=== PATIENT | male | born 1950 | race Caucasian/White ===

== ENCOUNTER → 2016-07-18 | Outpatient (CLI) | payer OTHER ==
--- NOTE | 2016-07-18 18:16 | CT ---
"High-Resolution Chest CT, Without Contrast, dated July 18, 2016 Indication: Dyspnea. Abnormal chest x-ray. Technique: Axial high-resolution computed tomographic images obtained including inspiratory and expi ratory 1.25-mm slice thickness images at 10-mm intervals. Prone axial images through the lung bases with inspiratory phase at 1.25-mm thickness at 10-mm intervals. Axial 2.5-mm images through the enti re chest with inspiratory phase also obtained. No intravenous contrast utilized. Dose reduction kim hniques were utilized. Findings: Multifocal bilateral reticular abnormality involving the subpleural distribution and to a lesser degree peribronchial vascular pattern in the right lower lobe and left lower lobe. Scattered fissural nodules, multifocal ground-glass opacities, and traction bronchiectasis in the lower lobes, right middle lobe, and lingula. No caleb honeycombing. The apical segment of the left upper lobe is relatively well spared. No caleb honeycombing. No emphysema or mucous plugging. Two indeterminant noncalcified pulmonary nodules in the apical segment right upper lobe measure 6 x 5 mm on image #70 of series #6 and 7 x 5 mm on image #73 of series #6. No spiculated or ground-glass nodule. Trace left pleural effusion. No pericardial or right-sided effusion. Heart size normal. Calcified plaque is present along the left anterior descending coronary artery. The thoracic aorta is normal caliber. Shotty fatty hilar lymph nodes are scattered throughout the mediastinum and pulmonary nataly. No enlar ged lymph nodes throughout the axilla, mediastinum, or pulmonary nataly. The imaged portion of the enmanuel er and spleen are unremarkable and normal size. No adrenal gland nodules. Multilevel mild degenerative disk disease. No acute compression fracture or bone lesion. Impression: 1. Mild to moderate pulmonary fibrosis. The pattern has mixed features of nonspecific interstitial pneumonitis (NSIP) and atypical usual interstitial pneumonitis (UIP). The pattern is doubtful for ch ronic hypersensitivity pneumonitis or sarcoidosis. 2. Two probably benign nodules apical segment right upper lobe. Recommend follow-up noncontrast [facility] st CT in six months. A Follow-Up Required test result has been communicated via the Graph Story | Critical Result syst em on 07/18/2016 18:01, Message ID [id number]."
== END ==
LOC: FIMAGING 14:20
PROVIDERS: ATTEND Internal Medicine Pulmonary Disease
DX: J84.10 Pulmonary fibrosis, unspecified (principal); R91.8 Other nonspecific abnormal finding of lung field

== ENCOUNTER 2017-08-05 13:40 | Inpatient (IN) | payer OTHER ==
[2017-08-05] MEDS ORDERED: NS 500 ML IV ONE (13:56)
[2017-08-05] MEDS ORDERED: IPRATROPIUM/ALBUTEROL 3 ML DEYVIAL IH ONE (13:56)
--- NOTE | 2017-08-05 14:04 | EDPHY ---
H & P Smoking Status: Never smoked Time Seen by Provider: 08/05/17 13:45 HPI/ROS: HPI Shortness of breath, low oxygen levels. 66-year-old male by private vehicle. This patient has a history of pulmonary fibrosis which was diagnosed 1 year ago. He has been managed by Dr. Jd Padron of the pulmonology service. He currently is not on any medications. He reports that he was in the company of his grandson over the weekend who had an upper respiratory infection with cough congestion and sneezing. Saturday he started to sneezed and developed an intermittent cough and nasal congestion with production of clear rhinorrhea. He feels that this is exacerbated his pulmonary fibrosis. He presents to the emergency department today stating that he has been feeling more short of breath continues to have nasal congestion and he purchased a home use pulse oximetry reader today. He reports that on room air he was in the low to mid 70s. He does not use oxygen at home. ROS: Constitutional: No fever, no chills. No weakness. Eyes: No discharge. No changes in vision. ENT: No sore throat. As above. Respiratory: As above. Cardiac: No chest pain, no palpitations. Gastrointestinal: No abdominal pain, no vomiting, no diarrhea. Genitourinary: No hematuria. No dysuria or increased frequency with urination. Musculoskeletal: No back pain. No neck pain. No myalgias or arthralgias. Skin: No rashes. Neurological: No headache. No focal weakness or altered sensation. Past medical history: Pulmonary fibrosis. As above. Social history: Former smoker. Has not smoked in years. Does not drink alcohol. Lives with his and family. Physical Exam: General Appearance: Alert, pleasant elderly male, no distress. This patient is responding to questions appropriately and in full sentences. Intermittent dry cough. This patient appears well-hydrated and well-nourished. Eyes: Pupils equal and round no pallor or injection. No lid edema, erythema or injection. Respiratory: There are no retractions, shallow air movement throughout all lung booker with crackles at the bases and scant rhonchi mid lung booker. Mild tachypnea. Cardiovascular: Regular rate and rhythm. Borderline tachycardia. No murmur appreciated. Gastrointestinal: Abdomen is soft and nontender, no masses, bowel sounds normal. No focal tenderness at McBurney's point. No Mendoza sign. Neurological: Motor sensory function is grossly intact. Cranial nerves are normal. Gait is normal. Skin: Warm and dry, no rashes. Musculoskeletal: Neck is supple and nontender. Extremities are symmetrical. No significant lower extremity edema. All joints range without pain or impingement. Psychiatric: No agitation. No depression. Database: Imaging: Chest x-ray PA and lateral; the cardiac mediastinal silhouette is unremarkable. Significant for interstitial lung disease process which appears to be worse when compared to prior chest x-ray from May of 2016. Suspect possible new infiltrative process left lower lobe and right middle lung field. Interpreted by me. Procedures: Emergency department course: Vital signs reviewed. He is not febrile. Room air pulse oximetry in the upper 70s to low 80s on arrival. EKG obtained and reviewed by myself. He will be given a trial albuterol/Atrovent nebulizer treatment. 2:45 p.m. patient re-evaluated. He does not feel any significant change from nebulizer treatment. After review of the patient's chest x-ray, blood cultures were obtained. The patient will be started on broad-spectrum antibiotics IV Rocephin and azithromycin. EKG is currently pending. This will be done shortly. I have discussed case in detail with my colleague Dr. Loy Mojica who is taking over as emergency department attending. He will follow up on remaining test results, consult with hospitalist and get this patient admitted and transferred to our hospitalist service. Differential Diagnosis: The differential diagnosis on this patient includes but is not limited to bronchitis, upper respiratory infection, history of pulmonary fibrosis, pulmonary embolism, acute coronary syndrome, pneumonia, congestive heart failure. This represents a partial list of diagnoses considered. These considerations are based on history, physical exam, past history, reassessment and diagnostic testing. (Kelley Hand) Past Medical/Surgical History: Family history is negative for premature coronary disease or any immediate family members with DC. (Loy Mojica) Social History: Smokes marijuana occasionally. Never smoked tobacco. (Loy Mojica) Constitutional: Initial Vital Signs Temperature (C) 36.9 C 08/05/17 13:49 Heart Rate 113 H 08/05/17 13:49 Respiratory Rate 20 08/05/17 13:49 Blood Pressure 131/90 H 08/05/17 13:49 O2 Sat (%) 81 L 08/05/17 13:49 O2 Delivery Mode Nasal Cannula O2 (L/minute) 3 Allergies/Adverse Reactions: No Known Allergies Allergy (Verified 08/05/17 19:17) Home Medications: Medication Instructions Recorded Ibuprofen [Motrin (*)] 200 - 600 mg PO Q6H PRN 08/05/17 Multivitamins [Multivitamin (*)] 1 each PO DAILY 08/05/17 Boyd-3 Fatty Acids [Fish Oil 1000 2,000 mg PO DAILY 08/05/17 mg (*)] Pseudoephedrine HCl [Sudafed 12 120 mg PO BID PRN 08/05/17 Hour 120mg (*)] Aspirin EC [Aspirin EC 81 mg (*)] 81 mg PO DAILY tab 08/07/17 Azithromycin [Zithromax] 500 mg PO DAILY #3 tab 08/07/17 Metoprolol Tartrate [Lopressor 25 12.5 mg PO BID #60 tab 08/07/17 mg (*)] Medical Decision Making - Diagnostics EKG Interpretation: 12 lead EKG was performed at 3:12 p.m. Indication dyspnea Sinus tachycardia 103 Intervals: P R of 184, QRS of 104, QTC of 466 Polk: P of 12, QRS of -80, T of 13 ST segments are notable for ST depression in leads V2 and V3 J-point elevation in V4 V5 1 mm and Q-waves in V3 through V5. Overall assessment sinus rhythm with left anterior fascicular block evidence of anterior infarct-age indeterminate. No prior EKGs for comparison. Repeat EKG performed at 5:25 p.m.-rule out interval change Sinus rhythm at 96 Intervals: No significant change from initial EKG Polk: P of 33, QRS of -85, T of -17 ST segments: Persistent T-wave inversions and entero lateral leads with no significant interval change by my interpretation. Overall assessment: Sinus rhythm with left anterior fascicular block and evidence of age indeterminate anterior infarct (Loy Mojica) ED Course/Re-evaluation: At 3:20 p.m. Given EKG findings, the patient is treated with aspirin 324. I interviewed him in some detail regarding any cardiac symptoms after reviewing his EKG and he denies having any chest pain, heart palpitations, diaphoresis, nausea, lower extremity swelling or other symptoms that sound like cardiac ischemia. He only noticed the frequent coughing and feeling of chest congestion and dyspnea. I placed a page to our hospitalist at 3:30 a.m. As well as our director of community center with plan for admission and cardiology consult I spoke with Shwetha White, hospitalist accepts patient for admission to [facility] for further treatment and evaluation I spoke with Kerwin, nurse practitioner with [facility] in consult. They will see the patient when he arrives at [facility] - likely echocardiogram and further evaluation. Initial treatment was oriented toward pneumonia with cough, given exposure to respiratory illness and concern for infiltrate on the x-ray. In addition, his BNP came back elevated over 2800. He has no leukocytosis or fever. Venous lactate is also normal. When queried, the patient admits orthopnea over the past 2 days in association with the symptoms. On repeat examination, rales at bilateral bases are also present & these findings suggest pulmonary edema in addition to potential pneumonia. With evidence of subacute infarct and EKG likely related to ischemia, this patient may have had lower cardiac output resulting in pulmonary edema. Will treat him with 20 of Lasix IV as a I think that he is euvolemic to hypervolemic and has pulmonary edema contributing to his current hypoxia. I counseled patient regarding this. Will monitor I's/O's. Possibilities for this patient's pathogenesis includes potential silent DC with subsequent CHF versus primary pulmonary element such as worsening pulmonary fibrosis or viral pneumonitis/pneumonia with subsequent hypoxia and myocardial ischemia secondary to hypoxia (which seems more likely). At the moment he has no active cardiac symptoms other than the dyspnea that resolved with nasal cannula O2. While he was initially hypertensive on arrival while hypoxic with correction of hypoxia on nasal cannula O2 his BP is normalized to 120s over 70s. On supplemental O2 his current heart rate is 100. I answered the patient and his 's questions prior to transfer to [facility]. At the time of transfer he is stable on supplemental nasal cannula O2 and is diuresing after Lasix IV 1720: There is a delay in transfer. I ordered a repeat EKG to rule out any significant interval change from his initial EKG - on this EKG performed at 5:25 p.m. With a sinus rhythm at 96 I do not appreciate any significant interval change from the initial EKG. Please refer to above reading for more details and for trace master for complete read. I also spoke with Dr. Rigoberto Juan, director of community center from [facility] in consult. He agrees with current treatment plan of holding on any beta-gavi or blood thinners with plan to cycle enzymes overnight and perform an echocardiogram. This will be a transthoracic so tolerate for this patient to proceed with p.o. Intake. I answered all the patient's questions and his 's questions prior to transfer to [facility] by EMS. He is comfortable and stable at the time of transfer. (Loy Mojica) - Data Points Laboratory Results: Laboratory Results 08/05/17 14:10 08/05/17 14:10 Medications Given: Discontinued Medications Albuterol/Ipratropium (Duoneb) 3 ml IH EDNOW ONE Stop: 08/05/17 13:57 Last Admin: 08/05/17 14:19 Dose: 3 ml Albuterol/Ipratropium (Duoneb) 3 ml IH Q6 DARIO Stop: 02/02/18 00:00 Last Admin: 08/07/17 13:13 Dose: 3 ml Aspirin (Aspirin) 324 mg PO EDNOW ONE Stop: 08/05/17 15:24 Last Admin: 08/05/17 15:36 Dose: 324 mg Aspirin Buffered (Aspirin Ec) 81 mg PO DAILY DARIO Stop: 02/02/18 08:59 Last Admin: 08/07/17 09:30 Dose: 81 mg Enoxaparin Sodium (Lovenox) 40 mg SC DAILY DARIO Stop: 02/02/18 08:59 Last Admin: 08/07/17 09:30 Dose: 40 mg Furosemide (Lasix Injection) 20 mg IVP EDNOW ONE Stop: 08/05/17 16:03 Last Admin: 08/05/17 16:07 Dose: 20 mg Sodium Chloride (Ns) 500 mls @ 1,000 mls/hr IV EDNOW ONE PRN Reason: Protocol Stop: 08/05/17 14:25 Last Admin: 08/05/17 14:19 Dose: 500 mls Azithromycin 500 mg/ Sodium (Chloride) 255 mls @ 255 mls/hr IV EDNOW ONE PRN Reason: Protocol Stop: 08/05/17 15:57 Last Admin: 08/05/17 15:38 Dose: 255 mls Ceftriaxone Sodium/Dextrose (Rocephin 1 Gm (Premix)) 50 mls @ 100 mls/hr IV EDNOW ONE PRN Reason: Protocol Stop: 08/05/17 15:27 Last Admin: 08/05/17 15:37 Dose: 50 mls Ceftriaxone Sodium/Dextrose (Rocephin 1 Gm (Premix)) 50 mls @ 750 mls/hr IV DAILY DARIO PRN Reason: Protocol Stop: 09/05/17 08:59 Last Admin: 08/07/17 09:30 Dose: 50 mls Azithromycin 500 mg/ Sodium (Chloride) 255 mls @ 255 mls/hr IV DAILY DARIO PRN Reason: Protocol Stop: 09/05/17 08:59 Last Admin: 08/07/17 09:30 Dose: 255 mls Prednisone (Prednisone) 40 mg PO DAILY DARIO Stop: 02/02/18 10:29 Last Admin: 08/07/17 09:30 Dose: 40 mg Departure - Departure Disposition: [facility] Inpatient Acute Clinical Impression: Hypoxia, Pulmonary fibrosis, Pneumonia, Elevated troponin CHF (congestive heart failure) Qualifiers: Heart failure type: unspecified Heart failure chronicity: acute Qualified Code( s): I50.9 - Heart failure, unspecified Condition: Fair
[2017-08-05 14:19] LABS: PLATELET COUNT 213 10^3/uL (150-400)
[2017-08-05 14:29] LABS: INR 1.23 (0.83-1.16); PROTIME(PATIENT) 15.3 SEC (12.0-15.0)
[2017-08-05] MEDS ORDERED: AZITHROMYCIN IV 500 MG in NS 250 ML IV ONE (14:58)
--- NOTE | 2017-08-05 15:14 | CPEKG ---
Heart Rate: 103 RR Interval: 583 P-R Interval: 184 QRSD Interval: 104 QT Interval: 356 QTC Interval: 466 P Wilson: 12 QRS Wilson: -80 T Wave Wilson: 13 EKG Severity - ABNORMAL ECG - EKG Impression: SINUS TACHYCARDIA EKG Impression: PROBABLE LEFT ATRIAL ABNORMALITY EKG Impression: LEFT ANTERIOR FASCICULAR BLOCK EKG Impression: ANTERIOR INFARCT, AGE INDETERMINATE Electronically Signed By: Loy Mojica 05-Aug-2017 16:06:34
[2017-08-05] MEDS ORDERED: ASPIRIN 81 MG CHEWABLE TAB PO ONE (15:23)
[2017-08-05] MEDS ORDERED: ASPIRIN 81 MG CHEWABLE TAB ONE (15:28)
[2017-08-05] MEDS ORDERED: FUROSEMIDE 20 MG/2 ML VIAL IVP ONE (16:02)
--- NOTE | 2017-08-05 17:26 | CPEKG ---
Heart Rate: 96 RR Interval: 625 P-R Interval: 172 QRSD Interval: 100 QT Interval: 360 QTC Interval: 455 P Modesto: 33 QRS [place]: -85 T Wave [place]: -17 EKG Severity - ABNORMAL ECG - EKG Impression: SINUS RHYTHM EKG Impression: LEFT ANTERIOR FASCICULAR BLOCK EKG Impression: BORDERLINE R WAVE PROGRESSION, ANTERIOR LEADS EKG Impression: NONSPECIFIC T ABNORMALITIES, DIFFUSE LEADS Electronically Signed By: Loy Mojica 05-Aug-2017 17:31:28
[2017-08-05] MEDS ORDERED: ONDANSETRON 4 MG/2 ML VIAL IVP PRN (20:50)
[2017-08-05] MEDS ORDERED: ACETAMINOPHEN 325 MG TAB PO PRN (20:50)
[2017-08-05] MEDS ORDERED: IBUPROFEN 200 MG TAB PO PRN (20:52)
--- NOTE | 2017-08-05 21:21 | GHP ---
[f rep st] HISTORY AND PHYSICAL DATE OF ADMISSION: 08/05/2017 CHIEF COMPLAINT: Shortness of breath. HISTORY OF PRESENT ILLNESS: The patient is a 66-year-old male diagnosed with pulmonary fibrosis 1 ye ar ago. His baseline room air oxygen saturations are 88-90, and he does not wear home oxygen. His buck rodriguez recently had an upper respiratory tract infection. The patient started sneezing Saturday aft er lunch. He had progressive shortness of breath over the next 2 days. He felt severe shortness of breath this morning, so he went to [employer] and bought a pulse oximeter, measured himself to be 73% o n room air, so he came to the emergency room. There has been no chest pain. There is some possible orthopnea for the last 2 days. His cough is productive of mucus. PAST MEDICAL HISTORY: Pulmonary fibrosis. MEDICATIONS: Please see computer record for full detailed list. ALLERGIES: No known drug allergies. SOCIAL HISTORY: Former smoker. No alcohol. Lives with his . REVIEW OF SYSTEMS: Complete review of systems obtained. Review of systems negative on constitutiona l, HEENT, GI, pulmonary, vascular, , hematology, skin, musculoskeletal, endocrine, psych except for positives and negative as in HPI. FAMILY HISTORY: Reviewed, is negative for coronary artery disease. PHYSICAL EXAMINATION: GENERAL: Well-developed, well-nourished male, in no distress. VITAL SIGNS: Temperature 36.7, pulse 95, blood pressure 140/85, satting 96% on room air. EYES: Normal conjunctiv ae. Pupils equal, react to light. ENT: Normal ears and nose. Hearing intact. Normal teeth. Orop harynx moist. NECK: Trachea midline. No thyromegaly. CHEST: Normal effort. Lungs bibasilar rale s. CARDIOVASCULAR: Regular rate, rhythm. No murmur. No extremity edema. ABDOMEN: Soft, nontende r. No hepatosplenomegaly. SKIN: Warm, dry, intact without rash. MUSCULOSKELETAL: No cyanosis or clubbing. Strength 5/5 upper and lower extremities. NEURO: Cranial nerves intact. Normal sensatio n to light touch. PSYCH: Alert and oriented x3. Normal mood and affect. Normal judgment and insig ht. Normal memory. LABORATORY DATA: White count 7.5, hematocrit 53.6, platelets 213, sodium 139, potassium 4.9, chlorid e 99, bicarb 26, BUN 18, creatinine 1.0, glucose of 80. BNP is 2,850, troponin is 0.062. RSV is pos itive. EKG, viewed by me, my personal interpretation is sinus tachycardia. Significant inferior and anterio r T-wave inversions. Chest x-ray shows bilateral pulmonary fibrosis, possible superimposed basilar consolidation. ASSESSMENT/PLAN: 1. Respiratory syncytial virus infection. Suspect he may have a bacterial pneumonia secondarily. W e will continue ceftriaxone and azithromycin. We will check a procalcitonin. 2. Possible congestive heart failure. It is difficult to differentiate pulmonary fibrosis versus pu lmonary edema. His BNP is a little elevated. He did receive a dose of IV Lasix x1. We will check a n echocardiogram. 3. Electrocardiogram changes with borderline troponin elevation. This is probably due to the stress of his hypoxemia, but we will follow serial troponins and EKGs. The emergency room consulted Cardio logy to see in the morning. CODE STATUS: Full. ADMISSION STATUS: We will admit to inpatient, as we anticipate greater than 2 midnights required for stabilization. DVT PROPHYLAXIS: He is high risk. We will place on subcu Lovenox. /[id number]/MODL
[2017-08-05] MEDS: IPRATROPIUM/ALBUTEROL 3 ML DEYVIAL IH SCH (23:50)
[2017-08-06 04:26] LABS: PLATELET COUNT 185 10^3/uL (150-400)
[2017-08-06] MEDS: IPRATROPIUM/ALBUTEROL 3 ML DEYVIAL IH SCH ×4 (05:15→23:10)
[2017-08-06] MEDS ORDERED: ENOXAPARIN 40 MG/0.4 ML SYR SC SCH (09:00)
--- NOTE | 2017-08-06 09:11 | CPEKG ---
Heart Rate: 96 RR Interval: 625 P-R Interval: 164 QRSD Interval: 98 QT Interval: 344 QTC Interval: 435 P Mckenna: 48 QRS Mckenna: -83 T Wave Mckenna: -10 EKG Severity - ABNORMAL ECG - EKG Impression: SINUS RHYTHM EKG Impression: LEFT ANTERIOR FASCICULAR BLOCK EKG Impression: ANTERIOR INFARCT, AGE INDETERMINATE EKG Impression: BORDERLINE T ABNORMALITIES, INFERIOR LEADS EKG Impression: SIMILAR ECG TO PRIOR Electronically Signed By: Johan Martin 06-Aug-2017 11:32:44
[2017-08-06] MEDS: ASPIRIN EC 81 MG TAB PO SCH (09:26)
[2017-08-06] MEDS: AZITHROMYCIN IV 500 MG in NS 250 ML IV SCH (09:26)
[2017-08-06] MEDS: ENOXAPARIN 40 MG/0.4 ML SYR SC SCH (09:26)
--- NOTE | 2017-08-06 10:04 | ASMTCMCOM ---
CM Note CM Note Notes: Patient admitted for a URI and possible PNA. He is being treated with IV antibiotics. There is also a suspicion of CHF; an EKG has been ordered. Patient lives independently with his . No acute therapies have been ordered. I don't anticipate any discharge needs, but if they arise Case Management is available. Date Signed: 08/06/2017 10:04 AM Electronically Signed By:Letha Manzanares RN
--- NOTE | 2017-08-06 10:21 | ECHO ---
[email or web address] [address] [address] Main: [phone] Fax: Transthoracic Echocardiogram Name: BLAINE GARVIN MR#: [id number] Study Date: 08/06/2017 Study Time: 08:31 AM Date of : 1950 Age: 66 year(s) Height: 177.8 cm (70 in.) Weight: 88 kg (194 lb.) BSA: 2.06 m2 Gender: Male Examination: Echo Indication: Pulmonary fibrosis/elevated troponin Image Quality: Contrast: Requested by: Shwetha White BP: 113 mmHg/64 mmHg Heart Rate: Rhythm: Indication: Pulmonary fibrosis/elevated troponin Procedure Staff Comedian: Tali Reeves RDCS Reading Physician: Magdi Connell MD Requesting Provider: Conclusions: Normal size left ventricle. Mild concentric LV hypertrophy. Global hypercontractility of the left ventricle. EF is 64 %. Moderately dilated right ventricle. Moderately to severely reduced right ventricular function. Flattened interventricular septum consistent with right ventricular pressure and/or volume overload septum. RVSP is 53mmHG.. The right atrium is mildly to moderately dilated. The mitral valve is normal in appearance and function. Trivial mitral valve regurgitation. The aortic valve is tri-leaflet. Mild aortic cusp calcification is noted. The tricuspid valve is normal in appearance and function. Mild tricuspid regurgitation is present. The pulmonary artery pressure is mildly increased. Measurements: Chambers Valvular Assessment AV/MV Valvular Assessment TV/PV Normal Normal Normal Name Value Range Name Value Range Name Value Range Ao Maida (MM): 4.1 cm (2.2 cm-3.7 AV meanP mmHg ( - ) TR Vmax: 3.28 mm/s ( - ) cm) MV E Vmax: 0.62 m/s ( - ) TR PGmax: 43 mmHg ( - ) IVSd (2D): 1.1 cm (0.6 cm-1.1 MV A Vmax: 0.75 m/s ( - ) syst. PAP: 53 mmHg ( - ) cm) MV E/A: 0.83 ( - ) LVDd (2D): 4.7 cm (4.2 cm-5.9 cm) LVDs (2D): 3.2 cm (2.1 cm-4 cm) Patient: BLAINE GARVIN Study Date: 08/06/2017 Page 1 of 2 08:31 AM LVPWd (2D): 1.1 cm (0.6 cm-1 cm) LVEF (MOD4): 64 % (>=55 %) Continued Measurements: Chambers Valvular Assessment AV/MV Valvular Assessment TV/PV Name Value Name Value Name Value LADs: 4.8 cm MV E/E' Septal: 7.80 CVP (est.): 10 mmHg MV E/E' Lateral: 6.90 Additional Vessels Name Value Ao Ascendin.1 cm Findings: Left Ventricle: Normal size left ventricle. Mild concentric LV hypertrophy. Global hypercontractility of the left ventricle. EF is 64 %. Right Ventricle: Moderately dilated right ventricle. Moderately to severely reduced right ventricular function. Flattened interventricular septum consistent with right ventricular pressure and/or volume overload septum. RVSP is 53mmHG.. Left Atrium: The left atrium is normal in size. Right Atrium: The right atrium is mildly to moderately dilated. Mitral Valve: The mitral valve is normal in appearance and function. Trivial mitral valve regurgitation. Aortic Valve: The aortic valve is tri-leaflet. Mild aortic cusp calcification is noted. Tricuspid Valve: The tricuspid valve is normal in appearance and function. Mild tricuspid regurgitation is present. The pulmonary artery pressure is mildly increased. Pulmonic Valve: The pulmonic valve is normal in appearance and function. Aorta: Borderline ascending aorta dilatation.. The aorta is normal. Pericardium: No pericardial effusion. (No Signature Object) Patient: BLAINE GARVIN Study Date: 08/06/2017 Page 2 of 2 08:31 AM [id number]
--- NOTE | 2017-08-06 10:31 | HOSPPROG ---
Hospitalist Progress Note Assessment/Plan: 66 yo M w pulm fibrosis here w rsv, AHRF AHRF: pulm fibrosis plus superimposed lung disease continue nebs, add pred 40 X 5 days rsv noted IS and pulm toilet ?bacterial pneumonia: at risk for secondary pneumonia continue abx procalcitonin noted, uncertain significance abnormal ekg and indet trop: suspect strain from lung disease and hypoxemia no prior cardiology consulted this is not ACS elevated bnp: suspect R heart strain from acute on chronic lung disease proph: LMWH dispo: inpt Subjective: tele: sinus and sinus tach (intero by me). ekg w LAFB and ant twi ( interp by me). cxr w worsening LL airspace disease on known ILD (interp by me) symptomatically improved from admission Objective: Vital Signs Temp Pulse Resp BP Pulse Ox 36.4 C 103 H 15 113/64 92 08/06/17 03:54 08/06/17 05:16 08/06/17 05:16 08/06/17 03:54 08/06/17 05:16 Laboratory Results 08/06/17 04:10 08/06/17 04:10 08/05/17 08/06/17 08/07/17 05:59 05:59 05:59 Intake Total 1200 Output Total 2000 Balance -800 PT 15.3 SEC (12.0-15.0) H 08/05/17 14:10 INR 1.23 (0.83-1.16) H 08/05/17 14:10 - Physical Exam Constitutional: no apparent distress, appears nourished Eyes: PERRL, anicteric sclera Ears, Nose, Mouth, Throat: moist mucous membranes, hearing normal Cardiovascular: regular rate and rhythym, no murmur, rub, or gallop, No edema Respiratory: other (b/l rhonchi w wheezes. good air movement) Gastrointestinal: normoactive bowel sounds, soft, non-tender abdomen Genitourinary: no bladder fullness, No el in urethra Skin: warm, normal color Musculoskeletal: full muscle strength, no muscle tenderness Neurologic: AAOx3, sensation intact bilaterally Psychiatric: interacting appropriately Lymph, Heme, Immunologic: no cervical LAD ICD10 Worksheet Patient Problems: Problems Problem Status Onset CHF (congestive heart failure) Acute Elevated troponin Acute Hypoxia Acute Pneumonia Acute Pulmonary fibrosis Acute
[2017-08-06] MEDS: predniSONE 20 MG TAB PO SCH (10:58)
--- NOTE | 2017-08-06 11:17 | PDMN ---
Medical Necessity Medical necessity: est los>2mn for respiratory syncytial virus infection, suspected secondary bacterial PNA, possible CHF, and EKG changes w/elevated troponin; admit for IV abx, supplemental O2, and serial troponins and EKG's; comorbid pulmonary fibrosis, w/o O2 needs at baseline; per order and H&P 08/05/17
--- NOTE | 2017-08-06 14:44 | GCON ---
[f rep st] CONSULTATION CARDIOLOGY CONSULTATION REASON FOR CONSULTATION: Increased shortness of breath, mildly elevated troponin. HISTORY OF PRESENT ILLNESS: The patient is a 66-year-old male who has known pulmonary fibrosis diagnosed [address] Padron. He reports that he had been in his normal state of health until Saturday, when he started developing sneezing. On Saturday morning when he awoke, he felt significantly fatigued, weak. He had noticed that he was also feeling more shortness of breath. He reports no fevers, chills or night sweats. He attempted to rest for the rest of the day, but by the following morning, Saturday, he reports increased shortness of breath. He did go to [employer], purchased a pulse oximeter, in which he reports his initial saturation was 73% on room air. Due to this, he came to the emergency room for further evaluation. He does report prior to his sickness, he and his had been watching one of his young grandchildren, who he reports had been sick for the last 2 weeks with an upper respiratory infection. He denies any chest pain or pressure, reports no palpitations, denies any orthopnea , PND, edema, sudden weight gain, lightheadedness, near-syncope, or syncopal events. Denies any symptoms suggestive of TIA or CVA. Reports no bleeding issues , and prior to Saturday night, reports no history of fevers or chills. Upon arrival to the emergency department, initial oxygen saturation was around 81%. Electrocardiogram was done at that time, showing sinus tachycardia with left anterior fascicular block. Initial laboratory studies did note a mild elevation in troponin of 0.062 and a proBNP of 2850. D-dimer was negative at 0.35. RSV testing were done that was positive. Blood cultures are currently pending. Due to his elevated troponin, upper respiratory system, and his history of pulmonary fibrosis, he was admitted over to the PCU overnight, where he has been started on antibiotic therapy and prednisone. He was given 1 dose of IV Lasix yesterday, which he reports significant diuresis. He does report as soon as medication therapy had been started, he has had significant improvement in symptoms. He denies, since hospitalization, any episode of chest pain or pressure and denies any palpitations. On continuous surveillance monitor, he has remained in sinus rhythm. Unfortunately, his troponins have remained flat, this morning's at 0.062. PAST MEDICAL HISTORY: Patient reports significant past history of pulmonary fibrosis diagnosed a year ago. Primary safe and vault installer is Dr. Padron. PAST SURGICAL HISTORY: Patient reports he has had previous right rotator cuff repair and left and right knee surgery. FAMILY HISTORY: Patient denies any significant family history of coronary artery disease, none at early onset. SOCIAL HISTORY: He is retired. 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 He has 2 adult children and 2 grandchildren. He denies any history of tobacco abuse. He does drink 1-2 beers on a daily basis. Denies any illicit drug use. ALLERGIES: The patient currently reports no known allergies. HOME MEDICATIONS: Include pseudoephedrine 120 mg p.o. b.i.d. p.r.n., ibuprofen 200-600 mg p.o. q.6 hours p.r.n., omega-3 fatty acids 2000 mg p.o. daily, multivitamin 1 tablet p.o. daily. REVIEW OF SYSTEMS: A 10-point review of systems done on the patient, all negative, except as mentioned above. PHYSICAL EXAMINATION: GENERAL APPEARANCE: A medium built, well-groomed male. He is alert and oriented to person, place, time, and situation, currently appears to be under no acute distress. VITAL SIGNS: Current vital signs are blood pressure of 98/74. Heart rate is 104, sinus tachycardia on the monitor, respirations 18, saturating 95% on 4 L nasal cannula, temperature 37.6 degrees Celsius. HEENT: Head is normocephalic. Lips and tongue are pink and moist, with no signs of cyanosis. Conjunctivae pink. NECK: Trachea is midline, + 2 carotid pulses bilateral, no auscultated bruits, jugular vein elevation 4-5 cm above sternal notch at a 45-degree angle. RESPIRATORY: Rhonchi throughout, diminished in the bases. CARDIAC: Tachy rate, regular rhythm, S1, S2, no S3, S4 , gallops, rubs or murmur noted. ABDOMEN: Soft, nontender, bowel sounds x4 quadrants, no organomegaly, no palpable masses. SKIN: [place], warm, dry, no cyanosis, no clubbing, no peripheral edema. VASCULAR: +2 carotids bilateral, +2 radials bilateral, +2 dorsal pedal and posterior tibial pulses bilateral. LABORATORY STUDIES: Current laboratory studies show WBC of 6.91, hemoglobin 18.2, hematocrit 55.8, platelet count of 185. Sodium 139, potassium of 4.9, chloride 103, CO2 24, BUN 17, creatinine 0.9, glucose 88, troponin less than 0.062. Admission BNP was 2850. D-dimer was less than 0.35. Today's laboratory studies also showed triglycerides 82, total cholesterol 96, LDL 53, HDL 27. STUDIES: Electrocardiogram done this morning showing sinus rhythm, left anterior fascicular block. Chest x-ray done on admission showing new basilar consolidation suggesting pneumonia or less likely pulmonary edema superimposed on underlying interstitial lung disease. Echocardiogram done this morning showing mild concentric LVH, global hypocontractility with LV, EF was estimated at 64, moderate dilation of the RV, moderate to severely reduced RV function, flattened interventricular septum consistent with RV pressure, volume overload. RVSP was estimated at 53 mmHg. RA was moderately dilated, trivial MR, mild TR, mild NC. ASSESSMENT AND PLAN: 1. Hypoxia: Potential combination due to pulmonary fibrosis, new respiratory syncytial virus diagnosis and possible pneumonia. The patient has been started on nebs, prednisone, antibiotics and is encouraged on incentive spirometer and pulmonary toilet by hospital services. SpO2 remains greater than 90% since on oxygen therapy, and patient reports improvement in shortness of breath. 2. Questionable pneumonia. Patient has been started on antibiotic therapy by hospitalist services. 3. Elevated troponin: Patient was noted with abnormal electrocardiogram showing left anterior fascicular block, with nonspecific T-wave abnormalities. Denies any history of chest pain or pressure. Has indeterminate troponin levels. LV systolic function off echo was normal. More than likely, elevated troponin level was due to recent hypoxic event. Will continue trending troponins. With his multiple cardiac risk factors, though, we will further evaluate him with him undergoing stress testing. Due to his pulmonary fibrosis, he is unable to run on treadmill. We will plan for him to have a Mere MPI study done tomorrow morning. He has been made n.p.o. of caffeine for 8 hours prior to test. 4. Elevated BNP: Suspected echocardiogram, which noted some RV wall function abnormalities. The patient was given Lasix with mild diuresing yesterday. More than likely, BNP is due to his acute on chronic pulmonary disease. Thank you for the consultation. We will be glad to follow along with you. /[id number]/MODL MTDD
[2017-08-07] MEDS: IPRATROPIUM/ALBUTEROL 3 ML DEYVIAL IH SCH ×2 (05:42→13:13)
[2017-08-07] MEDS: AZITHROMYCIN IV 500 MG in NS 250 ML IV SCH (09:30)
[2017-08-07] MEDS: ASPIRIN EC 81 MG TAB PO SCH (09:30)
[2017-08-07] MEDS: predniSONE 20 MG TAB PO SCH (09:30)
[2017-08-07] MEDS: ENOXAPARIN 40 MG/0.4 ML SYR SC SCH (09:30)
[2017-08-07] MEDS ORDERED: REGADENOSON 0.4 MG/5 ML SYR IVP ONE (10:12)
[2017-08-07 12:23] VITALS: BP 120/79; TEMP 98.5
[2017-08-07 13:28] VITALS: PULSE 107; RESP 15
[2017-08-07] MEDS ORDERED: NITROGLYCERIN 0.4 MG BTL SL PRN (15:22)
--- NOTE | 2017-08-07 15:38 | PDHOMEO2F ---
Home Oxygen Face to Face Home Orders: I certify that a physician or a nurse practitioner or physician's insurance account assistant has had a [id number] encounter with this patient on the date of this order due to the diagnosis listed, which relates to the primary reason the patient requires home oxygen. Alternative treatments have been tried, or considered, and deemed ineffective. It is anticipated that supplemental oxygen will result in improvement with treatment. Home oxygen qualifying diagnosis: ipf Home oxygen secondary diagnosis: pneumonia SpO2 on room air (%): 81 Frequency of home oxygen needed: continuous Home oxygen liters per minute: 4 Home oxygen delivery device: nasal cannula Concentrator: No E-tanks for mobility and back up: Yes If ordering portable O2, is the patient mobile in the home?: Yes I certify that, based on these findings, the home oxygen is medically necessary for this patient for the following length of time. Length of time home oxygen needed: 1 month
--- NOTE | 2017-08-07 15:56 | HOSPPROG ---
Hospitalist Progress Note Assessment/Plan: 66 yo M w pulm fibrosis here w rsv, AHRF AHRF: pulm fibrosis plus superimposed lung disease continue nebs, add pred 40 X 3 days rsv noted IS and pulm toilet ?bacterial pneumonia: at risk for secondary pneumonia continue abx procalcitonin noted, uncertain significance complete 5 day course abx abnormal ekg and indet trop: suspect strain from lung disease and hypoxemia no prior cardiology consulted this is not ACS stress positive vs artifact BB and aspirin w cardiology follow up elevated bnp: suspect R heart strain from acute on chronic lung disease proph: LMWH dispo: inpt Subjective: case d/w samantha mayo, cardiology COMMUNICATION CONSULTANT Objective: Vital Signs Temp Pulse Resp BP Pulse Ox 36.9 C 107 H 15 120/79 94 08/07/17 12:00 08/07/17 13:15 08/07/17 13:15 08/07/17 12:00 08/07/17 13:15 Laboratory Results 08/06/17 04:10 08/06/17 04:10 08/06/17 08/07/17 08/08/17 05:59 05:59 05:59 Intake Total 1200 300 Output Total 2000 400 700 Balance -800 -100 -700 PT 15.3 SEC (12.0-15.0) H 08/05/17 14:10 INR 1.23 (0.83-1.16) H 08/05/17 14:10 - Physical Exam Constitutional: no apparent distress, appears nourished Eyes: PERRL, anicteric sclera Ears, Nose, Mouth, Throat: moist mucous membranes, hearing normal Cardiovascular: regular rate and rhythym, no murmur, rub, or gallop Respiratory: No no rales or rhonchi, No clear to auscultation Gastrointestinal: normoactive bowel sounds, soft, non-tender abdomen Genitourinary: no bladder fullness, No el in urethra Skin: warm, normal color Musculoskeletal: full muscle strength, no muscle tenderness Neurologic: AAOx3 ICD10 Worksheet Patient Problems: Problems Problem Status Onset CHF (congestive heart failure) Acute Elevated troponin Acute Hypoxia Acute Pneumonia Acute Pulmonary fibrosis Acute
[2017-08-07 15:59] VITALS: O2SAT 81
--- NOTE | 2017-08-07 16:26 | GDS ---
[f rep st] DISCHARGE SUMMARY DISCHARGE DIAGNOSES: 1. Acute on chronic hypoxemic respiratory failure. 2. Idiopathic pulmonary fibrosis. 3. Respiratory syncytial virus infection. 4. Suspected bacterial pneumonia. 5. Positive troponin with positive stress test versus artifact. CONSULTS: Cardiology. HOSPITAL COURSE: Please see admission history and physical by Dr. Shwetha White. The patient prese nted on the afternoon of the with increased work of breathing. He was found to have an oxygen s aturation in the 70s. He has been short of breath for a couple of days. He had a grandchild with RS V. His baseline oxygen saturation is 80% to 90%. Chest x-ray showed progressive airspace disease pa rticularly in the right lower lobe. Antibiotics were initiated. He was not febrile. He did not hav e sepsis. He had an indeterminate troponin that trended down, nonischemic EKG. Echocardiogram was p erformed that showed an elevated RSVP as expected, but otherwise unremarkable. The patient did not have lower extremity edema. He received a nuclear stress test showing apical isc hemia versus artifact. He was initiated on a beta gavi and aspirin, which he tolerated. He is di scharged home to complete a 5-day course of antibiotics as well as with oxygen. 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 Davion Padron. /[id number]/MODL
--- NOTE | 2017-08-07 16:46 | PDCARPN ---
Cardiology Progress Note Chief Complaint: Patient reports continued feel shortness of breath, but has had significant improvement since admission to the hospital. Assessment/Plan: Assessment: 66-year-old male with significant history of pulmonary fibrosis. Admitted for hypoxia with SpO2 83% on arrival. Diagnosed with RSV infection with suspected bacterial pneumonia noted to have mildly elevated troponins on admission. No history of chest pain or pressure. Echocardiogram done on 08/06 showing mild concentric LVH, global hyper contractility of LV, EF 64%, mildly dilated RV, moderate to severely reduced RV function , flattened intraventricular ses then consistent with RV pressure overload , RVSP estimated at 53 mm Hg. RA was noted to be mildly dilated, trivial MR, mild TR. Started on antibiotic therapy , prednisone , nebulizers , in oxygen therapy with improvement of SpO2. Patient has been asymptomatic of symptoms suggesting of cardiac ischemia through hospitalization. Today, patient did undergo MPI study, which showed normal LV systolic function, with possible apical lateral ischemia/infarction. Images were reviewed with Dr. Raymond, small area of myocardial involved. Potentially artifact or only suggesting single-vessel disease. Troponin on downward decline , today 0.035. Plan: 1. Acute hypoxia: Probable combination of pulmonary fibrosis , RSV infection, and pneumonia. Being treated with prednisone , and antibiotic therapy. Patient on oxygen therapy and maintaining SpO2 greater than 90%. 2. Elevated troponin level/abnormal MPI study: Patient noted to have elevated troponin level on admission, on downward decline. Patient reporting no history of chest pain or symptoms of ischemia. ? Possible troponin elevation due to hypoxic event. MPI study did show small area possible apical lateral ischemia/ infarction. Normal LV systolic function, with normal ejection fraction. Reviewed with Dr. Raymond, showing only a small area , single-vessel, low risk stress test, with questionable possible artifact. Did discussed with the patient and his about potential options, attempting medical therapy or undergoing cardiac catheterization. Since he has been asymptomatic of any symptoms, patient has chosen to start medical therapy at this time, and be re- evaluated as an outpatient in a week. We will have him continue on current aspirin therapy. Start him on low-dose beta-gavi. Recent fasting lipid panel showed LDL of less than 70. Will hold off on starting him on statin therapy at this time. Will plan for him to be seen in office within a week for further evaluation. 3. Elevated BNP: Probable due to his acute on chronic lung disease. Patient appears to be euvolemic 4. Pulmonary fibrosis: Patient to continue following up with pulmonology. 08/07/17 16:44 Subjective: Patient denies of any chest pressure or pain, denies of any palpitations, lightheadedness, orthopnea, PND, edema, near-syncope or syncopal events. Reviewed/Discussed With: hospitalist (Dr Gonzalez), other (Dr Raymond) Objective: Vital Signs (8 Hrs) Temp Pulse Resp BP Pulse Ox 08/07/17 15:58 81 L 08/07/17 13:15 107 H 15 94 08/07/17 12:00 36.9 C 100 22 H 120/79 92 Intake/Output (24 Hrs) 08/06/17 08/07/17 08/08/17 05:59 05:59 05:59 Intake Total 1200 300 Output Total 2000 400 700 Balance -800 -100 -700 Intake: Oral (ml) 400 300 IV Infused (ml) 800 Output: Urine (ml) 2000 400 700 Toilet 800 400 700 Other: Weight 88.2 kg Number of Voids Toilet 1 Result Diagrams: 08/06/17 04:10 08/06/17 04:10 Cardiac Labs: Cardiac Lab Results (72 Hrs) 08/07/17 08/06/17 08/05/17 14:48 04:10 22:09 Troponin I 0.035 H 0.062 H 0.058 H - Physical Exam Constitutional: WDWN, no apparent distress Ears, Nose, Mouth, Throat: moist mucous membranes Cardiovascular: regular rate and rhythm, pulses symmetric bilat, No jugular vein distention, No carotid bruit Peripheral Pulses: 1+: dorsalis-pedis (R), dorsalis-pedis (L), 2+: carotid (R), carotid (L) Respiratory: other (Patient with noted rhonchi in upper lobes, mildly clearing with cough. No rales noted. No accessory muscle use, no intercostal muscle retraction noted.) Gastrointestinal: normoactive bowel sounds Skin: no rashes, warm, no edema Neurologic: AAOx3 Psychiatric: cooperative, interactive, following commands ICD10 Worksheet Patient Problems: Problems Problem Status Onset CHF (congestive heart failure) Acute Elevated troponin Acute Hypoxia Acute Pneumonia Acute Pulmonary fibrosis Acute
[2017-08-07] MEDS ORDERED: METOPROLOL TARTRATE 25 MG TAB PO SCH (21:00)
[2017-08-08] MEDS ORDERED: AZITHROMYCIN 250 MG TAB PO SCH (09:00)
--- NOTE | 2017-08-09 16:49 | CPIP ---
[f rep st] INVASIVE CARDIAC PROCEDURE Patient received a pharmacologic stress test. Patient had no EKG changes with this stress test. They tolerated the procedure well. There were no further complications from this. Nuclear images pending. /[id number]/MODL
== END 2017-08-07 17:50 | disposition home or self-care (01) | DRG 189 ==
LOC: CED 13:40 → CEDHOLD 15:35 → OBSVTOIN 15:37 → F2W 18:46
PROVIDERS: ADMIT Internal Medicine; ATTEND Internal Medicine
DX: J96.21 Acute and chronic respiratory failure with hypoxia (principal); J06.9 Acute upper respiratory infection, unspecified; B97.4 Respiratory syncytial virus as the cause of diseases classified elsewhere; J84.112 Idiopathic pulmonary fibrosis; J15.9 Unspecified bacterial pneumonia; Z87.891 Personal history of nicotine dependence
CPT/HCPCS: 71046-PO; 80048-PO; 83605-PO; 83880-PO; 84484-PO; 85025-PO; 85378-PO; 85610-PO; 85730-PO; 96365; A9500; J0456; J0696; J1650; J1940; J2785; J7512